=== PATIENT | female | born 1995 | race Caucasian/White ===

== ENCOUNTER → 2018-12-10 | Outpatient (REF) | payer MEDICAID | LOC: M SFHCLERA 08:59 | PROVIDERS: ATTEND Family Medicine | DX: L74.8 Other eccrine sweat disorders (principal); Z53.9 Procedure and treatment not carried out, unspecified reason ==

== ENCOUNTER → 2019-09-02 | Outpatient (REF) | payer OTHER, MEDICAID ==
[2019-09-02 14:09] LABS: BASO % 0.4 % (0.0-1.0); EOS % 0.5 % (0.0-3.0); HEMATOCRIT 42.7 % (36.0-47.0); HEMOGLOBIN 13.2 g/dl (12.0-15.5); LYMPH # 1.6 10^3/uL (1.5-5.0); LYMPH % 27.9 % (24.0-44.0); MEAN CORPUSCULAR HEMOGLOBIN 27.3 pg (27.0-33.0); MEAN CORPUSCULAR HGB CONC 30.9 g/dl (32.0-36.5); MEAN CORPUSCULAR VOLUME 88.2 fl (80.0-96.0); MONO # 0.5 10^3/uL (0.0-0.8); MONO % 8.8 % (0.0-5.0); NEUTROPHILS # 3.5 10^3/uL (1.5-8.5); NEUTROPHILS % 62.2 % (36.0-66.0); PLATELET COUNT, AUTOMATED 272 10^3/uL (150-450); RED BLOOD COUNT 4.84 10^6/uL (4.00-5.40); WHITE BLOOD COUNT 5.6 10^3/uL (4.0-10.0)
[2019-09-02 14:27] LABS: ALBUMIN 3.6 GM/DL (3.2-5.2); ALT/SGPT 18 U/L (12-78); BILIRUBIN,TOTAL 0.6 MG/DL (0.2-1.0); BLOOD UREA NITROGEN 12 MG/DL (7-18); CALCIUM LEVEL 8.7 MG/DL (8.5-10.1); CARBON DIOXIDE LEVEL 27 MEQ/L (21-32); CHLORIDE LEVEL 105 MEQ/L (98-107); CHOLESTEROL LEVEL 177 MG/DL (<200); CREATININE FOR GFR 0.74 MG/DL (0.55-1.30); FREE T4 0.87 NG/DL (0.76-1.46); GLOMERULAR FILTRATION RATE > 60.0 (>60); GLUCOSE, FASTING 90 MG/DL (70-100); HDL CHOLESTEROL 51 MG/DL (>40); LDL CHOLESTEROL 113 MG/DL (<100); NON-HDL-C 126 MG/DL; SODIUM LEVEL 139 MEQ/L (136-145); TOTAL 25(OH) VITAMIN D 18.2 NG/ML (30.0-100.0); TOTAL PROTEIN 7.1 GM/DL (6.4-8.2); TRIGLYCERIDES LEVEL 64 MG/DL (<150)
[2019-09-02 14:42] LABS: HEMOGLOBIN A1c 5.4 %
== END ==
LOC: M LAB REF 13:33
PROVIDERS: ATTEND Family Medicine
DX: Z13.228 Encounter for screening for other metabolic disorders (principal); M25.50 Pain in unspecified joint

== ENCOUNTER → 2020-03-09 | Outpatient (REF) | payer OTHER, MEDICAID ==
[2020-03-09 13:12] LABS: CHOLESTEROL RISK RATIO 3.111 (<5); TOTAL 25(OH) VITAMIN D 18.4 NG/ML (30.0-100.0)
== END ==
LOC: M LAB REF 11:39
PROVIDERS: ATTEND Nurse Practitioner Family
DX: E66.9 Obesity, unspecified (principal); Z13.220 Encounter for screening for lipoid disorders; E55.9 Vitamin D deficiency, unspecified

== ENCOUNTER → 2020-08-31 | Outpatient (REF) | payer OTHER, MEDICAID ==
[2020-08-31 12:42] LABS: BASO % 0.3 % (0.0-1.0); EOS # 0.1 10^3/uL (0.0-0.5); EOS % 1.3 % (0.0-3.0); HEMATOCRIT 40.5 % (36.0-47.0); HEMOGLOBIN 12.7 g/dl (12.0-15.5); LYMPH # 1.6 10^3/uL (1.5-5.0); MEAN CORPUSCULAR HEMOGLOBIN 27.3 pg (27.0-33.0); MEAN CORPUSCULAR HGB CONC 31.4 g/dl (32.0-36.5); MEAN CORPUSCULAR VOLUME 86.9 fl (80.0-96.0); MONO # 0.5 10^3/uL (0.0-0.8); MONO % 7.5 % (0.0-5.0); NEUTROPHILS # 4.1 10^3/uL (1.5-8.5); NEUTROPHILS % 64.4 % (36.0-66.0); PLATELET COUNT, AUTOMATED 250 10^3/uL (150-450); RED BLOOD COUNT 4.66 10^6/uL (4.00-5.40); WHITE BLOOD COUNT 6.3 10^3/uL (4.0-10.0)
[2020-08-31 13:23] LABS: ALT/SGPT 17 U/L (12-78); BILIRUBIN,TOTAL 0.6 MG/DL (0.2-1.0); BLOOD UREA NITROGEN 9 MG/DL (7-18); CALCIUM LEVEL 8.6 MG/DL (8.5-10.1); CARBON DIOXIDE LEVEL 27 MEQ/L (21-32); CHLORIDE LEVEL 107 MEQ/L (98-107); CREATININE FOR GFR 0.72 MG/DL (0.55-1.30); GLOMERULAR FILTRATION RATE > 60.0 (>60); GLUCOSE, FASTING 92 MG/DL (70-100); POTASSIUM SERUM 4.3 MEQ/L (3.5-5.1); SODIUM LEVEL 141 MEQ/L (136-145); TRIGLYCERIDES LEVEL 79 MG/DL (<150)
[2020-08-31 13:24] LABS: ALBUMIN 3.6 GM/DL (3.2-5.2); CHOLESTEROL LEVEL 154 MG/DL (<200); CHOLESTEROL RISK RATIO 3.347 (<5); HDL CHOLESTEROL 46 MG/DL (>40); LDL CHOLESTEROL 92 MG/DL (<100); NON-HDL-C 108 MG/DL; TOTAL 25(OH) VITAMIN D 17.5 NG/ML (30.0-100.0); TOTAL PROTEIN 6.9 GM/DL (6.4-8.2)
== END ==
LOC: M LAB REF 12:25
PROVIDERS: ATTEND Nurse Practitioner Family
DX: E78.5 Hyperlipidemia, unspecified (principal); F41.8 Other specified anxiety disorders; E55.9 Vitamin D deficiency, unspecified; E66.9 Obesity, unspecified

== ENCOUNTER → 2021-07-09 | Outpatient (CLI) | payer OTHER, MEDICAID ==
--- NOTE | 2021-07-09 13:38 | REP ---
INDICATION: ACHILLES TENDINITIS, BILAT. COMPARISON: None TECHNIQUE: Four views each ankle FINDINGS: Bilateral: There is no acute fracture, dislocation, or subluxation. There is no destructive osseous lesion. There are no abnormal heel spurs. IMPRESSION: Bilateral: No acute osseous abnormality <Electronically signed by Miguel Alberto > 07/09/21 0004
== END ==
LOC: M SOG 10:50
PROVIDERS: ATTEND Orthopaedic Surgery
DX: M76.61 Achilles tendinitis, right leg (principal); M76.62 Achilles tendinitis, left leg

== ENCOUNTER 2022-01-28 20:49 | Emergency (ER) | payer MEDICAID, OTHER ==
[~2022-01-28] VITALS: Ht 170.2 cm; Wt 102.3 kg
[2022-01-28 22:45] VITALS: BP 147/78
== END 2022-01-28 23:03 | disposition home or self-care (01) ==
LOC: M ED 20:49
DX: S93.492A Sprain of other ligament of left ankle, initial encounter (principal); X50.9XXA Other and unspecified overexertion or strenuous movements or postures, initial encounter; Y92.89 Other specified places as the place of occurrence of the external cause; L55.0 Sunburn of first degree

== ENCOUNTER 2023-07-25 15:54 | Emergency (ER) | payer OTHER ==
[~2023-07-25] VITALS: Ht 170.2 cm; Wt 95.4 kg
[2023-07-25] MEDS ORDERED: BOOSTRIX VACCINE (TETANUS/DIPHTH/ACEL. PERTUSSIS) 0.5ML SYR IM ONE (18:25)
[2023-07-25] MEDS ORDERED: AMOX875T2 PO (19:02)
[2023-07-25 19:25] VITALS: BP 123/79; TEMP 98.5; O2SAT 100
== END 2023-07-25 19:28 | disposition home or self-care (01) ==
LOC: M ED 15:54
DX: S61.452A Open bite of left hand, initial encounter (principal); W54.0XXA Bitten by dog, initial encounter; Y92.9 Unspecified place or not applicable

== ENCOUNTER → 2023-07-29 | Outpatient (REF) ==
[~2023-07-29] MED LIST: AMOX875T2 PO
== END ==
LOC: M PLAIMG 11:07
PROVIDERS: ATTEND Internal Medicine
DX: R52 Pain, unspecified (principal)

== ENCOUNTER 2023-10-18 10:55 | Emergency (ER) | payer OTHER ==
[~2023-10-18] VITALS: Ht 170.2 cm; Wt 92.6 kg
[2023-10-18] MEDS ORDERED: BENZ200C70 PO (13:20)
[2023-10-18] MEDS ORDERED: ALBU6.7H6 INH (13:20)
[2023-10-18 13:35] VITALS: BP 130/67; TEMP 98.1; O2SAT 100
== END 2023-10-18 13:36 | disposition home or self-care (01) ==
LOC: M ED 10:55
DX: J20.9 Acute bronchitis, unspecified (principal); Z79.52 Long term (current) use of systemic steroids; Z79.899 Other long term (current) drug therapy

== ENCOUNTER 2024-03-05 13:01 | Emergency (ER) | payer OTHER ==
[~2024-03-05] VITALS: Ht 170.2 cm; Wt 91.6 kg
[~2024-03-05 13:01] MED LIST changes: +ALBU6.7H6 INH; +BENZ200C70 PO
[2024-03-05] MEDS ORDERED: IBUP200C89 PO (13:29)
[2024-03-05] MEDS ORDERED: ALBU8.5H (13:29)
[2024-03-05] MEDS ORDERED: PENI500T PO (14:20)
[2024-03-05 14:44] VITALS: BP 133/64; TEMP 96.8; O2SAT 100
== END 2024-03-05 14:51 | disposition home or self-care (01) ==
LOC: M ED 13:01
DX: G90.09 Other idiopathic peripheral autonomic neuropathy (principal); K04.7 Periapical abscess without sinus; J45.909 Unspecified asthma, uncomplicated

== ENCOUNTER → 2024-03-15 | Outpatient (CLI) | payer OTHER ==
[~2024-03-15] MED LIST changes: +ALBU8.5H; +IBUP200C89 PO; +PENI500T PO
== END ==
LOC: M CARPUL 09:21
PROVIDERS: ATTEND Family Medicine
DX: R06.09 Other forms of dyspnea (principal)

== ENCOUNTER → 2024-08-17 | Outpatient (CLI) | payer OTHER, MEDICAID | LOC: M SOG 07:49 | PROVIDERS: ATTEND Physician Assistant | DX: M76.61 Achilles tendinitis, right leg (principal) ==

== ENCOUNTER → 2024-11-18 | Outpatient (REF) | payer MEDICAID, OTHER ==
[2024-11-18 18:49] LABS: ALBUMIN 3.8 G/DL (3.2-5.2); ALKALINE PHOSPHATASE 49 U/L (35-104); ALT/SGPT 23 U/L (7.0-40); AST/SGOT 16 U/L (<34); BILIRUBIN,TOTAL 0.4 MG/DL (0.3-1.2); BLOOD UREA NITROGEN 15 MG/DL (9-23); CALCIUM LEVEL 8.7 MG/DL (8.5-10.1); CARBON DIOXIDE LEVEL 28 MMOL/L (20-31); CHLORIDE LEVEL 106 MMOL/L (98-107); CHOLESTEROL LEVEL 171 MG/DL (<200); CHOLESTEROL RISK RATIO 3.51 (<5); CREATININE FOR GFR 0.62 MG/DL (0.55-1.30); GLOMERULAR FILTRATION RATE > 60.0 (>60); GLUCOSE, FASTING 83 MG/DL (60-100); HDL CHOLESTEROL 48.7 MG/DL (>40); LDL CHOLESTEROL 106.9 MG/DL (<100); NON-HDL-C 122.3 MG/DL; POTASSIUM SERUM 4.2 MMOL/L (3.5-5.1); SODIUM LEVEL 141 MMOL/L (136-145); TOTAL PROTEIN 7.1 G/DL (5.7-8.2); TRIGLYCERIDES LEVEL 77 MG/DL (<150)
== END ==
LOC: M PLALAB 17:12
PROVIDERS: ATTEND Family Medicine
DX: E66.9 Obesity, unspecified (principal)

== ENCOUNTER 2025-02-22 09:26 | Emergency (ER) | payer OTHER ==
[~2025-02-22] VITALS: Ht 170.2 cm; Wt 98.5 kg
[2025-02-22] MEDS ORDERED: NAPR-849 PO (09:51)
[2025-02-22 13:02] VITALS: BP 129/63; TEMP 97.1; O2SAT 99
[2025-02-22] MEDS ORDERED: FLON1SPR NARES (13:13)
[2025-02-22] MEDS ORDERED: CETI10CA13 PO (13:14)
== END 2025-02-22 13:23 | disposition home or self-care (01) ==
LOC: M ED 09:26
DX: R09.81 Nasal congestion (principal); J30.2 Other seasonal allergic rhinitis

== ENCOUNTER → 2025-05-24 | Outpatient (REF) | payer OTHER ==
[~2025-05-24] MED LIST changes: +CETI10CA13 PO; +FLON1SPR NARES; +NAPR-849 PO
[2025-05-24 15:33] LABS: APPEARANCE, URINE HAZY (CLEAR); BACTERIA, URINE AUTO 2+ (NEGATIVE); BILIRUBIN, URINE AUTO NEGATIVE (NEGATIVE); BLOOD, URINE BLOOD 2+ (NEGATIVE); GLUCOSE, URINE (UA) AUTO NEGATIVE (NEGATIVE); KETONE, URINE AUTO TRACE mg/dL (NEGATIVE); LEUKOCYTE ESTERASE, URINE AUTO 3+ (NEGATIVE); MUCUS, URINE SMALL (NEGATIVE); NITRITE, URINE AUTO NEGATIVE (NEGATIVE); PROTEIN, URINE AUTO NEGATIVE (NEGATIVE); RBC, URINE AUTO 6 /HPF (0-3); SPECIFIC GRAVITY URINE AUTO 1.021 (1.002-1.035); SQUAMOUS EPITHELIAL CELL UR AU 11 /HPF (0-6); UROBILINOGEN, URINE AUTO 0.2 mg/dL (0.0-2.0); WBC, URINE AUTO 13 /HPF (0-3)
== END ==
LOC: M LAB REF 14:54 → M SFHCPLAZ 14:54
PROVIDERS: ATTEND Family Medicine
DX: L75.0 Bromhidrosis (principal)